=== PATIENT | female | born 1970 | race Two or more races ===

== ENCOUNTER 2024-08-20 17:39 | Emergency (ER) | payer OTHER ==
[~2024-08-20] VITALS: Ht 170.2 cm; Wt 72.6 kg
[2024-08-20] MEDS ORDERED: JARDIANCE25 MG PO (19:36)
[2024-08-20] MEDS ORDERED: RESTORIL30 MG PO (19:36)
[2024-08-20] MEDS ORDERED: GLIPIZIDE ER10 MG PO (19:36)
[2024-08-20] MEDS ORDERED: SULFASALAZINE500 MG PO (19:36)
[2024-08-20] MEDS ORDERED: ARIPIPRAZOLE15 MG PO (19:36)
[2024-08-20] MEDS ORDERED: PANTOPRAZOLE SO40 MG PO (19:36)
[2024-08-20] MEDS ORDERED: GABAPENTIN800 M1 PO (19:36)
[2024-08-20] MEDS ORDERED: MONTELUKAST SOD10 MG PO (19:36)
[2024-08-20] MEDS ORDERED: LANTUS SOL100 UNIT/1 SQ (19:36)
[2024-08-20] MEDS ORDERED: KETOROLAC TROMETHAMINE 30 MG VIAL IM ONE (20:15)
[2024-08-20] MEDS ORDERED: KETOROLAC TROMETHAMINE 30 MG VIAL ONE (20:43)
== END 2024-08-20 22:14 | disposition home or self-care (01) ==
LOC: ER 17:39
DX: S80.01XA Contusion of right knee, initial encounter (principal); W18.39XA Other fall on same level, initial encounter; Y93.89 Activity, other specified; Y92.018 Other place in single-family (private) house as the place of occurrence of the external cause; Z88.8 Allergy status to other drugs, medicaments and biological substances; Z86.711 Personal history of pulmonary embolism
CPT/HCPCS: 73560; 96372; 99283; J1885